=== PATIENT | female | born 1995 | race Hispanic/Latino ===

== ENCOUNTER 2024-04-22 16:51 | Emergency (ER) | payer OTHER, SELFPAY | END 2024-04-22 19:03 | disposition home or self-care (01) | LOC: MADERS 16:51 | DX: B34.9 Viral infection, unspecified (principal) | CPT/HCPCS: 87081; 87430; 99283 ==

== ENCOUNTER 2025-01-10 23:54 | Emergency (ER) | payer SELFPAY | END 2025-01-11 00:28 | disposition home or self-care (01) | LOC: MADERS 23:54 | DX: F41.9 Anxiety disorder, unspecified (principal); F17.290 Nicotine dependence, other tobacco product, uncomplicated | CPT/HCPCS: 99283 ==

== ENCOUNTER 2025-01-14 14:49 | Emergency (ER) | payer SELFPAY | END 2025-01-14 17:29 | disposition home or self-care (01) | LOC: MADERS 14:49 | DX: B34.9 Viral infection, unspecified (principal) | CPT/HCPCS: 87426; 99283 ==

== ENCOUNTER 2025-02-22 07:25 | Emergency (ER) | payer SELFPAY ==
[2025-02-22 07:48] LABS: Glucose, Urine (Dipstick) Negative (Negative); Leukocyte Negative (Negative); Protein, Urine (Dipstick) Negative (Neg-Trace); Specific Gravity, Urine 1.025 (1.005-1.030)
[2025-02-22 07:50] LABS: Pregnancy Test - Urine (BHCG) Negative (Negative); Pregu Control Background? CLEAR/WHITE (CLR/WHITE); Pregu Control Bar Appear? YES (CONTROL BAR)
[2025-02-22 07:52] LABS: RBC/HPF 0-3 HPF (0-3)
[2025-02-22 07:53] LABS: Bacteria/HPF 1+ HPF (None Seen); CAUTI Indications for Culture Pelvic or flank pain; Urine Culture Reflex No No; WBC/HPF 0-3 HPF (0-3)
[2025-02-22] MEDS ORDERED: Ketorolac Tromethamine 30 MG (1 mL) VIAL ONE (07:56)
[2025-02-22 08:03] LABS: #Basophils 0.1 thou/uL (0.0-0.2); #Eosinophils 0.1 thou/uL (0.0-0.7); #Lymphocytes 3.0 thou/uL (1.20-3.40); #Monocytes 0.5 thou/uL (0.11-0.59); #Neutrophils 5.6 thou/uL (1.40-6.50); %Basophils 1.1 % (0.0-1.0); %Eosinophils 0.5 % (0.0-10.0); %Lymphocytes 32.2 % (21.0-51.0); %Monocytes 5.9 % (0.0-10.0); %Neutrophils 60.4 % (42.0-75.0); Hematocrit 39.9 % (36.0-47.0); Hemoglobin 13.1 g/dL (12.0-16.0); Mean Corpuscular Hemoglobin 27.6 pg (27.0-31.0); Mean Corpuscular Volume 83.9 fl (78.0-98.0); Platelet Count 302 10x3/uL (130-400); Red Blood Cell (RBC) Count 4.76 mill/uL (4.20-5.40); White Blood Cell (WBC) Count 9.3 10x3/uL (4.8-10.8)
[2025-02-22 08:14] LABS: ALT (SGPT) 55 U/L (Less than 34); AST (SGOT) 67 U/L (11-34); Albumin 4.2 g/dL (3.1-4.5); Alkaline Phosphatase 128 U/L (40-110); Anion Gap 15 mmol/L (10-20); BUN (Urea Nitrogen) 27 mg/dL (7.0-18.7); Bilirubin, Total 0.2 mg/dL (0.3-1.2); Calc. Creatinine Clearance 0 mL/min (70-130); Calcium 9.0 mg/dL (7.8-10.44); Chloride 108 mmol/L (98-107); Globulin 3.6 g/dL (2.4-3.5); Glucose 87 mg/dL (70-105); Potassium 3.6 mmol/L (3.5-5.1); Sodium 140 mmol/L (136-145)
[2025-02-22 08:18] LABS: Carbon Dioxide 21 mmol/L (22-29)
== END 2025-02-22 08:49 | disposition home or self-care (01) ==
LOC: MADERS 07:25
DX: R10.32 Left lower quadrant pain (principal); E86.0 Dehydration
CPT/HCPCS: 74177; 80053; 81001; 81025; 85025; 96374; J1885

== ENCOUNTER 2025-02-25 17:23 | Emergency (ER) | payer SELFPAY ==
[2025-02-25 18:47] LABS: Glucose, Urine (Dipstick) Negative (Negative); Leukocyte Negative (Negative); Protein, Urine (Dipstick) Negative (Neg-Trace); Specific Gravity, Urine 1.020 (1.005-1.030)
[2025-02-25 18:52] LABS: Pregnancy Test - Urine (BHCG) Negative (Negative); Pregu Control Background? CLEAR/WHITE (CLR/WHITE); Pregu Control Bar Appear? YES (CONTROL BAR)
[2025-02-25 18:54] LABS: Bacteria/HPF Rare-Few HPF (None Seen); CAUTI Indications for Culture Acute Hematuria; Mucous/LPF 2+ LPF (<2+); RBC/HPF 0-3 HPF (0-3); WBC/HPF 0-3 HPF (0-3)
[2025-02-25 18:55] LABS: Urine Culture Reflex No No
== END 2025-02-25 19:02 | disposition home or self-care (01) ==
LOC: MADERS 17:23
DX: R11.2 Nausea with vomiting, unspecified (principal); F17.290 Nicotine dependence, other tobacco product, uncomplicated; Z75.3 Unavailability and inaccessibility of health-care facilities
CPT/HCPCS: 81001; 81025; 99284; Q0162

== ENCOUNTER 2025-05-22 12:19 | Emergency (ER) | payer SELFPAY ==
[2025-05-22] MEDS ORDERED: Ibuprofen 800 MG TAB ONE (12:32)
== END 2025-05-22 12:45 | disposition home or self-care (01) ==
LOC: MADERS 12:19
DX: J06.9 Acute upper respiratory infection, unspecified (principal); F17.290 Nicotine dependence, other tobacco product, uncomplicated
CPT/HCPCS: 99283